=== PATIENT | female | born 2000 | race Caucasian/White ===

== ENCOUNTER 2022-02-05 09:30 | Emergency (ER) | payer OTHER, SELFPAY ==
[2022-02-05 09:49] VITALS: PULSE 82; O2SAT 99
[2022-02-05 09:50] VITALS: BP 115/57; PULSE 79; O2SAT 98
[2022-02-05 09:53] VITALS: BP 119/64; PULSE 78; RESP 18; TEMP 36.8; O2SAT 99; BMI 24.5
--- NOTE | 2022-02-05 10:04 | ED_ITS ---
HPI - General Adult General Chief complaint: Urogenital-Female Stated complaint: dizzy naseaus Time Seen by Provider: 02/05/22 09:53 Source: patient Mode of arrival: Ambulatory Limitations: no limitations History of Present Illness HPI narrative: 21-year-old at approximately 13 weeks EGA is here for evaluation of nausea and dizziness. No fevers. No vaginal bleeding. Is having some vaginal dischar ge. No urinary symptoms. No vomiting. Does have a history of anemia. Is on her vitamins. Also has on an iron supplement. Symptoms been going on for the past couple days. Contacted her primary OB provider who told her to come to the emergency department for evaluation. Related Data Home Medications Medication Instructions Recorded Confirmed prenat.vits,maninder,[id number] 1 tab PO DAILY 01/28/22 01/29/22 Previous Rx's Medication Instructions Recorded ondansetron 4 mg disintegrating 4 mg PO Q6H PRN #12 tab 02/05/22 tablet Allergies Allergy/AdvReac Type Severity Reaction Status Date / Time No Known Allergies Allergy Verified 01/29/22 12:10 Review of Systems Constitutional Constitutional: Reports system reviewed and no additional complaints, except as documented Cardiovascular Cardiovascular: Reports system reviewed and no additional complaints, except as documented Respiratory Respiratory: Reports system reviewed and no additional complaints, except as documented Gastrointestinal Gastrointestinal: Reports system reviewed and no additional complaints, except as documented Genitourinary Genitourinary: Reports system reviewed and no additional complaints, except as documented Integumentary/Breasts Skin/Breast: Reports system reviewed and no additional complaints, except as documented Neurologic Neurologic: Reports system reviewed and no additional complaints, except as documented Hematologic/Lymphatic On Anticoagulants: No Patient History Medical History Meniscus degeneration Migraine Shoulder injury Surgical History (Updated 01/28/22 @ 12:29 by Fifi Campbell RN) [place] teeth extracted Family History (Updated 01/28/22 @ 12:30 by Fifi Campbell RN) Mother Hypertension Father Diabetes mellitus Grandmother Uterine cancer Social History marital status: unmarried,living together number of children: 0 household members: significant other lives independently: Yes housing: apartment pets and animals: No education level: high school occupational status: employed current occupational exposures/hazards: No special deena needs: No travel history: recent ([place], [facility], [facility]) seatbelt use: always water heater temp set < 120 deg: Yes (Will check and adjust) working smoke detector in home: Yes fire extinguisher in home: Yes carbon monox detector in home: Yes firearms in home: No do you feel safe at home: Yes Smoking Status: Former smoker Tobacco: How many years used: 0 (less than one year) second hand exposure: No alcohol intake: former substance use type: marijuana (Previously) during the past year weight has: remained stable well-balanced diet: about half the time daily servings fruits/ve-1 caffeine: Yes Type(s) of exercise: walking, bicycling (exercise bike) and weight lifting Smoking Status: Former smoker Exam Initial Vital Signs Initial Vital Signs: Vital Signs Temperature 98.3 F 02/05/22 09:53 Pulse Rate 78 02/05/22 09:53 Respiratory Rate 18 02/05/22 09:53 Blood Pressure 119/64 02/05/22 09:53 Pulse Oximetry 99 02/05/22 09:53 HENMT Head: normal to inspection and normocephalic Resp Effort & Inspection: normal respiratory effort Auscultation: clear to auscultation bilaterally Cardio Rate: regular rate Rhythm: regular rhythm GI Inspection: normal to inspection Skin General: no rashes or lesions noted Neuro General: patient alert, patient awake, patient oriented x3 and moves all extre mities Extrem General: normal to inspection and capillary refill normal Psych Appearance: grossly normal and well kempt Course Orders Ordered: ED Orders 02/05/22 10:05 Urinalysis and Microscopic Stat 02/05/22 10:25 Basic Metabolic Panel Stat Complete Blood Count AUTO DIFF Stat HCG Quantitative /Beta subunit Stat Discontinued Medications Sodium Chloride (Normal Saline 0.9%) 1,000 mls @ 1,000 mls/hr IV BOLUS ONE Stop: 02/05/22 10:57 Last Infusion: 02/05/22 11:42 Dose: 1,000 mls/hr Documented by: Admin: 02/05/22 10:31 Dose: 1,000 mls/hr Documented by: KEN Ondansetron HCl (Ondansetron 4 Mg/2 Ml Inj) 4 mg IV NOW ONE Stop: 02/05/22 10:13 Last Admin: 02/05/22 10:31 Dose: 4 mg Documented by: KEN Vital Signs Vital signs: Vital Signs - 8 hr 02/05/22 09:53 Temperature 98.3 F Pulse Rate 78 Respiratory Rate 18 Blood Pressure 119/64 Pulse Oximetry 99 Medical Decision Making Lab Data Lab results reviewed: Yes I reviewed the patient's lab results. Result diagrams: 02/05/22 10:25 02/05/22 10:25 Labs: Lab Results 02/05/22 02/05/22 02/05/22 Range/Units 10:05 10:25 10:25 WBC 6.8 (4.5-11.0) X10^3/uL RBC 4.07 (4.0-5.2) X10^6/uL Hgb 11.8 L (12.0-16.0) g/dL Hct 34.0 L (36-46) % MCV 83.4 (80-100) fL MCH 28.9 (26-34) PG MCHC 34.7 (30-36) % RDW 12.6 (11.6-14.8) % Plt Count 166 (150-400) X10^3/uL Neut % (Auto) 76.9 H (50-75) % Lymph % (Auto) 16.5 L (25-40) % [place] % (Auto) 5.8 (3-14) % Eos % (Auto) 0.5 L (2-4) % Baso % (Auto) 0.3 (0-2) % Neut # (Auto) 5200 (6128-4054) /uL Lymph # (Auto) 1100 (4896-7648) /uL Jasper # (Auto) 400 (0-900) /uL Eos # (Auto) 0 (0-450) /uL Baso # (Auto) 0 (0-100) /uL Sodium 134 L (137-145) mmol/L Potassium 3.9 (3.4-5.1) mmol/L Chloride 106 (98-107) mmol/L Carbon Dioxide 23 (22-32) mmol/L BUN 10 (7-17) mg/dL Creatinine 0.68 (0.52-1.04) mg/dL Estimated GFR > 60 (>60) mL/min BUN/Creatinine Ratio 14.7 (6-22) Glucose 72 (70-100) mg/dL Calcium 9.1 (8.4-10.2) mg/dL HCG, Quant 97289 mIU/mL Urine Color Yellow Urine Appearance Clear Urine pH 5.5 (4.5-8.0) Ur Specific [place] 1.020 (1.000-1.035) Urine Protein Negative (Negative) Urine Glucose (UA) Negative (Negative) g/dL Urine Ketones Negative (NEGATIVE) Urine Occult Blood Negative (Negative) Urine Nitrate Negative (Negative) Urine Bilirubin Negative (NEGATIVE) Urine Urobilinogen 0.2 (0.2) E.U./dL Ur Leukocyte Esterase Trace H (NEGATIVE) Urine RBC None seen (0-5/HPF) Urine WBC 1-5/hpf (0-5/HPF) Ur Squamous Epith Cells 1-5 /hpf (0-5/HPF) Urine Bacteria Many (>30) H (None) Ur Culture Indicated? Culture not indicate MDM Narrative Medical decision making narrative: Labs are unremarkable. No signs of urinary tract infection. She is not having any vaginal bleeding. She has no nausea medication at home. She does feel somewhat better after fluids. Was sent home with Corey. Will have her keep all of her scheduled OB appointments. She was given return precautions. She expressed understanding and agreement. Discharge Plan Departure Patient Disposition: Home Clinical Impression: , Nausea Instructions: Nausea of (Alternative Therapy) Activity Restrictions/Additional Instructions: Be sure to increase your fluid intake. Keep all of your scheduled OB appointments. Continue to take your vitamins. Return to the emergency department for any new symptoms. Prescriptions: New ondansetron 4 mg tablet,disintegrating 4 mg PO Q6H PRN (Reason: nausea and vomiting) Qty: 12 0RF No Action prenat.vits,maninder,[id number] Tablet 1 tab PO DAILY 0RF Referrals: Miscellaneous,Doctor, MD [Primary Care Provider] -
[2022-02-05 10:18] LABS: Appearance Urine UA CLEAR; Bilirubin Urine UA NEGATIVE (NEGATIVE); Color Urine UA YELLOW; Glucose Urine UA NEGATIVE (Negative); Ketones Urine UA NEGATIVE (NEGATIVE); Leukocyte Esterase Urine UA TRACE (NEGATIVE); Nitrite Urine UA NEGATIVE (Negative); Occult Blood Urine UA NEGATIVE (Negative); Protein Urine UA NEGATIVE (Negative); Urobilinogen Urine UA 0.2 E.U./dL (0.2)
[2022-02-05 10:19] LABS: pH Urine UA 5.5 (4.5-8.0)
[2022-02-05] MEDS: ONDANSETRON 4 MG/2 ML INJ IV (10:31)
[2022-02-05] MEDS: SODIUM CHLORIDE 0.9% 1,000 ML 1000 ML IV (10:31)
[2022-02-05 10:33] LABS: Bacteria Urine Many (>30); RBC Urine None Seen (0-5/HPF); Squamous Epithelial Cell Urine 1-5 /HPF (0-5/HPF); WBC Urine 1-5/HPF (0-5/HPF)
[2022-02-05 10:37] LABS: Add Manual Diff / Slide Review NO; Basophils Absolute Auto 0 /uL (0-100); Basophils Percent Auto 0.3 % (0-2); Eosinophils Absolute Auto 0 /uL (0-450); Eosinophils Percent Auto 0.5 % (2-4); Hemoglobin 11.8 g/dL (12.0-16.0); Lymphocytes Absolute Auto 1100 /uL (1100-4500); Lymphocytes Percent Auto 16.5 % (25-40); Mean Corpuscular HGB Conc 34.7 % (30-36); Mean Corpuscular Hemoglobin 28.9 PG (26-34); Mean Corpuscular Volume 83.4 fL (80-100); Monocytes Absolute Auto 400 /uL (0-900); Monocytes Percent Auto 5.8 % (3-14); Neutrophils Absolute Auto 5200 /uL (1500-7000); Neutrophils Percent Auto 76.9 % (50-75); Platelet Count 166 X10^3/uL (150-400); Red Blood Cell Count 4.07 X10^6/uL (4.0-5.2); Red Cell Distribution Width 12.6 % (11.6-14.8); White Blood Cell Count 6.8 X10^3/uL (4.5-11.0)
[2022-02-05 10:51] LABS: BUN Creatinine Ratio 14.7 (6-22); Blood Urea Nitrogen 10 mg/dL (7-17); Calcium 9.1 mg/dL (8.4-10.2); Carbon Dioxide 23 mmol/L (22-32); Chloride 106 mmol/L (98-107); Estimated Glomerular Filt Rate > 60 mL/min (>60); Glucose 72 mg/dL (70-100); HEMOLYSIS < 15 (0-50); Potassium 3.9 mmol/L (3.4-5.1); Sodium 134 mmol/L (137-145)
[2022-02-05 11:34] LABS: HCG Quantitative /Beta subunit 41471 mIU/mL
[2022-02-05 12:08] VITALS: BP 115/55; PULSE 69; RESP 18; TEMP 36.6; O2SAT 99
== END 2022-02-05 12:08 | disposition home or self-care (01) ==
PROVIDERS: Emergency Provider Emergency Medicine; Referring Provider Family Medicine
DX: O21.0 Mild hyperemesis gravidarum (principal); Z3A.13 13 weeks gestation of pregnancy
CPT/HCPCS: 36415; 80048; 81001; 84702; 85025; 96361; 96374; 99284; J2405

== ENCOUNTER → 2022-03-17 12:13 | Outpatient (CLI) | payer OTHER, SELFPAY ==
--- NOTE | 2022-03-17 12:15 | DI.US.S_ITS ---
PROCEDURE: US OB >= 14 WEEKS FETUS INDICATIONS: Anatomy Screening OUTSIDE/PRIOR DATING DATA: Last menstrual period (LMP): 10/24/2021. LMP-based estimated date of delivery (MINDY): 07/31/2022. First dating scan (date and location): 03/17/2022. Estimated date of delivery (MINDY) from first dating scan: 08/01/2022. TECHNIQUE: Real-time scanning was performed of the fetus, with image documentation and biometric measurements. Endovaginal scanning: No COMPARISON: None. FINDINGS: General: A single living intrauterine gestation is present. Presentation: Vertex. Placenta: Placental position is anterior , without previa. Amniotic fluid index: 13.2 cm, normal range is 5-24 cm. heart rate: 141 beats per minute. Maternal cervical canal: 4.2 cm long. Normal lower limit is 2.5 cm. biometrics: Biparietal diameter: 48 mm; 20 weeks 3 days Head circumference: 178 mm; 20 weeks 2 days Abdominal circumference: 145 mm; 19 weeks 6 days Femur length: 35 mm; 21 weeks 0 days Clinically estimated gestational age: 20 weeks 4 days Composite gestational age from present scan: 20 weeks 3 days Anatomic survey: Neuro: Ventricles are non-dilated at less than 10 mm. Cisterna magna is normal at 3-11 mm. Cerebellum is normal in size and morphology. Nuchal skin fold: Normal at less than 6 mm between 14-21 weeks gestational age. Face: Nose and lips, facial profile are normal. Spine: No evidence for spina bifida. Heart: 4-chambered heart is present, with normal ventricular outflow tracts. Diaphragm: Diaphragm is intact. Stomach: Left-sided stomach is present. Kidneys: No hydronephrosis. Normal is less than 5 mm in 2nd trimester, less than 7 mm in 3rd trimester. Cord: 3-vessel cord has orthotopic insertion. Bladder: Normal in size. Extremities: All 4 extremities identified. IMPRESSION: 1. Single living intrauterine gestation. 2. Normal survey of anatomy. We strive to produce accurate, complete, and clear reports of imaging services. To assist us in improving patient care, this report was composed using standard report templates and voice recognition software. Therefore, it may contain abnormal punctuation, insertions and/or omissions. Occasional wrong-word or sound-alike substitutions may occur. Though we review the report and make efforts to correct it, we do recommend that the report be read carefully in proper context to recognize any text inaccuracies. Dictated by: Jesus Manuel Cox M.D. on 03/17/2022 at 15:07 Transcribed by: JACEY on 03/17/2022 at 15:09 Approved by: Jesus Manuel Cox M.D. on 03/17/2022 at 16:55
== END ==
PROVIDERS: Referring Provider Family Medicine; Visit Provider Family Medicine
DX: Z36.89 Encounter for other specified antenatal screening (principal); Z3A.20 20 weeks gestation of pregnancy
CPT/HCPCS: 76811

== ENCOUNTER → 2022-04-02 13:34 | Outpatient (CLI) | payer OTHER, SELFPAY | PROVIDERS: Referring Provider Family Medicine; Visit Provider Family Medicine | DX: Z34.01 Encounter for supervision of normal first pregnancy, first trimester (principal) | CPT/HCPCS: 36415; 86850; 86900; 86901 ==

== ENCOUNTER 2022-05-17 10:33 | Outpatient (CLI) | payer OTHER, SELFPAY ==
[2022-05-17 12:24] LABS: Appearance Urine UA CLEAR; Bilirubin Urine UA NEGATIVE (NEGATIVE); Color Urine UA YELLOW; Glucose Urine UA NEGATIVE (Negative); Ketones Urine UA NEGATIVE (NEGATIVE); Leukocyte Esterase Urine UA NEGATIVE (NEGATIVE); Nitrite Urine UA NEGATIVE (Negative); Occult Blood Urine UA 2+ (Negative); Protein Urine UA NEGATIVE (Negative); Specific Gravity Urine UA <=1.005 (1.000-1.035); Urobilinogen Urine UA 0.2 E.U./dL (0.2)
[2022-05-17 12:32] LABS: COVID19 -Nasal RAPID Negative (Negative)
[2022-05-17 12:43] LABS: pH Urine UA 6.5 (4.5-8.0)
[2022-05-17 12:49] LABS: Amorphous Sediment Urine 1+; Bacteria Urine None Seen; Culture Indicated Urine Cult Not Indicated; RBC Urine 1-5/HPF (0-5/HPF); WBC Urine None Seen (0-5/HPF)
--- NOTE | 2022-05-17 13:04 | P.TNLD_ITS ---
Visit Information Visit Information Date of evaluation: 05/17/22 Primary OB Provider: Linda Braswell Reason for Evaluation: Yes other Comments/Additional reasons for admission: 22yo at 29w2d here due to dizziness. Pt reports feeling dizzy this morning. States it is more lightheaded/feeling like she might pass out than vertigo. No vaginal bleeding, LOF, contractions. She is feeling her baby move regularly. She did not stay well hydrated over the weekend, and has not been urinating all that often. No recent chest pain, SOB, palpitations. [facility] Medical History (Updated 05/18/22 @ 13:13 by Linda Braswell MD) Anxiety (~2020) Depression (~2020) Eczema (~2019) Meniscus degeneration Migraine Painful menstrual periods (~2014) Shoulder injury Shoulder pain (~2019) Surgical History (Updated 01/28/22 @ 12:29 by Fifi Campbell RN) [place] teeth extracted Family History (Updated 03/17/22 @ 19:29 by Juliana Pulido) Mother Hypertension Father Diabetes mellitus Grandmother Uterine cancer Diabetes mellitus Social History marital status: unmarried,living together number of children: 0 household members: significant other lives independently: Yes housing: apartment pets and animals: No education level: high school occupational status: employed current occupational exposures/hazards: No special deena needs: No travel history: recent ([facility], [facility], [facility]) seatbelt use: always water heater temp set < 120 deg: Yes (Will check and adjust) working smoke detector in home: Yes fire extinguisher in home: Yes carbon monox detector in home: Yes firearms in home: No do you feel safe at home: Yes Smoking Status: Former smoker Tobacco: How many years used: 0 (less than one year) second hand exposure: No alcohol intake: former substance use type: marijuana (Previously) during the past year weight has: remained stable well-balanced diet: about half the time daily servings fruits/ve-1 caffeine: Yes Type(s) of exercise: walking, bicycling (exercise bike) and weight lifting Objective Labs Labs: Laboratory Results - last 24 hr 05/17/22 05/17/22 11:40 12:21 Urine Color Yellow Urine Appearance Clear Urine pH 6.5 Ur Specific [place] <=1.005 Urine Protein Negative Urine Glucose (UA) Negative Urine Ketones Negative Urine Occult Blood 2+ H Urine Nitrate Negative Urine Bilirubin Negative Urine Urobilinogen 0.2 Ur Leukocyte Esterase Negative Urine RBC 1-5/hpf Urine WBC None seen Amorphous Sediment 1+ Urine Bacteria None seen Ur Culture Indicated? Cult not indicated SARS-CoV-2 (PCR) Negative Evaluation Evaluation Baseline heart rate: 130 Variability: Moderate (11-25) monitor accelerations: Present Monitor Decelerations: Absent Diagnosis, Plan/Disposition Final Diagnosis (1) Light-headedness: Status: Acute (2) 29 weeks gestation of : Status: Acute Plan/Disposition Plan: 22yo at 29w2d here due to dizziness, most consistent with mild dehydration due to decreased PO intake over the weekend. Encouraged to increase water intake significantly, discussed normal urination frequency. F/U for regularly scheduled OB appt. OB Disposition: home
== END 2022-05-17 13:20 | disposition home or self-care (01) ==
LOC: LABOR 12:42 → OB 05-21 08:28
PROVIDERS: Referring Provider Family Medicine; Visit Provider Family Medicine
DX: O26.893 Other specified pregnancy related conditions, third trimester (principal); R42 Dizziness and giddiness; Z3A.29 29 weeks gestation of pregnancy; Z20.822 Contact with and (suspected) exposure to COVID-19
CPT/HCPCS: 59025; 59050; 81001; 87635; C9803; G0378; G0379

== ENCOUNTER → 2022-06-04 07:23 | Outpatient (CLI) | payer OTHER, SELFPAY ==
[2022-06-04 09:54] LABS: Appearance Urine UA CLEAR; Bilirubin Urine UA NEGATIVE (NEGATIVE); Color Urine UA YELLOW; Glucose Urine UA NEGATIVE (Negative); Ketones Urine UA NEGATIVE (NEGATIVE); Leukocyte Esterase Urine UA NEGATIVE (NEGATIVE); Nitrite Urine UA NEGATIVE (Negative); Occult Blood Urine UA NEGATIVE (Negative); Protein Urine UA NEGATIVE (Negative); Urobilinogen Urine UA 0.2 E.U./dL (0.2)
[2022-06-04 09:55] LABS: Hematocrit 32.2 % (36-46)
[2022-06-04 10:41] LABS: GTT (PREG) 1 Hour PP 50gm Dose 107 mg/dL (76-139)
== END ==
PROVIDERS: Referring Provider Family Medicine; Visit Provider Family Medicine
DX: Z34.01 Encounter for supervision of normal first pregnancy, first trimester (principal); Z3A.29 29 weeks gestation of pregnancy
CPT/HCPCS: 36415; 81003; 82950; 85014; 85018; 87086

== ENCOUNTER → 2022-07-02 17:02 | Outpatient (CLI) | payer OTHER, SELFPAY ==
[2022-07-03 13:06] LABS: Strep Grp B PCR POS for Grp B Strep
== END ==
PROVIDERS: Visit Provider Family Medicine
DX: Z36.85 Encounter for antenatal screening for Streptococcus B (principal)
CPT/HCPCS: 87653

== ENCOUNTER 2022-07-13 18:53 | Outpatient (CLI) | payer OTHER, SELFPAY ==
[2022-07-13 20:05] VITALS: BP 115/66
== END 2022-07-13 20:08 | disposition home or self-care (01) ==
LOC: OB 07-14 10:50
PROVIDERS: Referring Provider Family Medicine; Visit Provider Family Medicine
DX: O47.1 False labor at or after 37 completed weeks of gestation (principal); Z3A.37 37 weeks gestation of pregnancy
CPT/HCPCS: 59025; G0378; G0379

== ENCOUNTER 2022-07-22 06:08 | Observation (INO) | payer OTHER, SELFPAY ==
--- NOTE | 2022-07-22 07:04 | DI.US.S_ITS ---
PROCEDURE: US OB LIMITED INDICATIONS: ABDOMINAL PAIN - RULE OUT ABRUPTION OUTSIDE/PRIOR DATING DATA: Last menstrual period (LMP): 10/24/2021. LMP-based estimated date of delivery (MINDY): 07/31/2022. First dating scan (date and location): 03/17/2022 at . Estimated date of delivery (MINDY) from first dating scan: 08/01/2022. The calculations are made using the working MINDY of 08/01/2022. TECHNIQUE: Real-time scanning was performed of the fetus, with image documentation and biometric measurements. Biophysical profile was also obtained. Endovaginal scanning: Not performed. COMPARISON: [facility], , US ABDOMEN COMPLETE, 07/22/2022, 7:38. [facility], , US OB >= 14 WEEKS FETUS, 03/17/2022, 13:29. FINDINGS: General: A single living intrauterine gestation is present. Presentation: Vertex. Placenta: Placental position is anterior , without previa. Amniotic fluid index: 14.0 cm, normal range is 5-24 cm. Single deepest vertical pocket is 4.7 cm. heart rate: 145 beats per minute. Maternal cervical canal: Not visualized. biometrics: Biparietal diameter: 35 weeks 6 days Head circumference: 36 weeks 4 days Abdominal circumference: 35 weeks 2 days Femur length: 38 weeks 2 days Clinically estimated gestational age: 38 weeks 4 days Composite gestational age from present scan: 36 weeks 4 days Estimated weight and percentile: 2897 g; 14% Measurement variability for biometric dating: +/- 7 days from 14 weeks to 15 weeks 6 days gestation, +/- 10 days from 16 weeks to 21 weeks 6 days gestation, +/- 2 weeks from 22 weeks to 27 weeks 6 days gestation, +/- 3 weeks for 28 weeks gestation or later. weight reference: 4500 g or EFW >90/95% is considered macrosomia or large for gestational age. EFW <10% is small for gestational age. EFW 5% or less is considered intra-uterine growth restriction.>> Umbilical artery Doppler: S/D = 2.2-2.5 IMPRESSION: 1. A single living intrauterine gestation with an estimated gestational age of 36 weeks 4 days. 2. growth is at the lower range of normal. weight 14%. Head circumference 4% and abdominal circumference 3%. 3. Normal umbilical Doppler ultrasound with preserved diastolic flow. We strive to produce accurate, complete, and clear reports of imaging services. To assist us in improving patient care, this report was composed using standard report templates and voice recognition software. Therefore, it may contain abnormal punctuation, insertions and/or omissions. Occasional wrong-word or sound-alike substitutions may occur. Though we review the report and make efforts to correct it, we do recommend that the report be read carefully in proper context to recognize any text inaccuracies. Dictated by: Darron Etienne M.D. on 07/22/2022 at 8:48 Approved by: Darron Etienne M.D. on 07/22/2022 at 8:56
--- NOTE | 2022-07-22 07:06 | DI.US.S_ITS ---
PROCEDURE: US ABDOMEN COMPLETE INDICATIONS: RIGHT ABDOMINAL PAIN TECHNIQUE: Real-time scanning was performed of the abdominal and retroperitoneal organs, with image documentation. COMPARISON: [facility], US, US OB >= 14 WEEKS FETUS, 03/17/2022, 13:29. [facility], US, US OB LIMITED, 07/22/2022, 7:22. FINDINGS: Liver: Liver is normal in size and homogeneous in echotexture. Gallbladder: No gallstones. No gallbladder wall thickening, pericholecystic fluid or sonographic Lynch's sign. Biliary ducts: Intrahepatic bile ducts are non-dilated. Extrahepatic bile duct caliber measures 3.4 mm. Normal is 6-7 mm or less in diameter, or 10 mm or less post-cholecystectomy. Pancreas: Visualized portions of the pancreas are sonographically normal. Spleen: Spleen is normal in size and homogeneous in echotexture. Kidneys: Kidneys are normal in size and echotexture. Right kidney measures 13.8 cm long; left kidney measures 11.4 cm long. Wnsznclj-[id number]-[id number] right hydronephrosis and mild left hydronephrosis. The proximal right ureter is also dilated. No solid masses. Aorta: Visualized aorta is normal in caliber at less than 3 cm. Iliacs: Proximal common iliac arteries are not visualized. IVC: Intrahepatic inferior vena cava is patent. Miscellaneous: No free abdominal fluid. IMPRESSION: 1. Vbbyxwjl-[id number] right hydronephrosis and mild left hydronephrosis. The proximal right ureter is also dilated. No renal stones are visualized. The findings may be related to late . 2. Dictated by: Darron Etienne M.D. on 07/22/2022 at 8:57 Approved by: Darron Etienne M.D. on 07/22/2022 at 9:01
[2022-07-22 07:08] LABS: Appearance Urine UA SL CLOUDY; Bilirubin Urine UA NEGATIVE (NEGATIVE); Color Urine UA YELLOW; Glucose Urine UA TRACE g/dL (Negative); Ketones Urine UA NEGATIVE (NEGATIVE); Leukocyte Esterase Urine UA 3+ (NEGATIVE); Nitrite Urine UA NEGATIVE (Negative); Occult Blood Urine UA 3+ (Negative); Protein Urine UA NEGATIVE (Negative); Specific Gravity Urine UA 1.015 (1.000-1.035); Urobilinogen Urine UA 0.2 E.U./dL (0.2)
[2022-07-22 07:18] LABS: WBC Urine 10-30/HPF (0-5/HPF)
[2022-07-22 07:19] LABS: RBC Urine 5-10/HPF (0-5/HPF); Squamous Epithelial Cell Urine 10-30 /HPF (0-5/HPF)
[2022-07-22 07:22] LABS: Bacteria Urine Many (>30); Culture Indicated Urine Specimen Cultured
== END 2022-07-22 08:40 | disposition home or self-care (01) ==
PROVIDERS: Admitting Provider Family Medicine; Referring Provider Family Medicine; Visit Provider Family Medicine
DX: O47.1 False labor at or after 37 completed weeks of gestation (principal); O26.893 Other specified pregnancy related conditions, third trimester; R10.9 Unspecified abdominal pain; Z3A.38 38 weeks gestation of pregnancy
CPT/HCPCS: 59025; 76700; 76815; 76820; 81001; 87086; G0378; G0379

== ENCOUNTER 2022-08-01 18:13 | Inpatient (IN) | payer OTHER, SELFPAY ==
[2022-08-01 18:59] VITALS: BP 117/71
[2022-08-01] MEDS: miSOPROStoL 100 MCG TABLET 25 MCG VAG (19:49)
[2022-08-01 20:12] LABS: COVID19 -Nasal RAPID Negative (Negative)
[2022-08-01 20:21] LABS: Add Manual Diff / Slide Review NO; Basophils Absolute Auto 0 /uL (0-100); Basophils Percent Auto 0.4 % (0-2); Eosinophils Absolute Auto 100 /uL (0-450); Eosinophils Percent Auto 0.7 % (2-4); Hematocrit 33.8 % (36-46); Hemoglobin 11.2 g/dL (12.0-16.0); Lymphocytes Absolute Auto 1300 /uL (1100-4500); Lymphocytes Percent Auto 13.8 % (25-40); Mean Corpuscular HGB Conc 33.3 % (30-36); Mean Corpuscular Hemoglobin 26.5 PG (26-34); Mean Corpuscular Volume 79.8 fL (80-100); Monocytes Absolute Auto 700 /uL (0-900); Monocytes Percent Auto 7.2 % (3-14); Neutrophils Absolute Auto 7300 /uL (1500-7000); Neutrophils Percent Auto 77.9 % (50-75); Platelet Count 255 X10^3/uL (150-400); Red Blood Cell Count 4.24 X10^6/uL (4.0-5.2); Red Cell Distribution Width 14.5 % (11.6-14.8); White Blood Cell Count 9.4 X10^3/uL (4.5-11.0)
[2022-08-02] MEDS: LACTATED RINGERS 1,000 ML 100 ML IV ×4 (05:49→21:12)
[2022-08-02] MEDS: fentaNYL 100 MCG/2 ML INJ 50 MCG IV ×2 (06:21→08:32)
--- NOTE | 2022-08-02 09:53 | PM.OBHP.IH.1 ---
OB HPI Date/Time Date of admission: 08/01/22 Date Patient Seen: 08/02/22 History of Present Condition Chief complaint: Observation MINDY Calculator Estimated Delivery Date Method Current WG Current Estimate 07/31/22 Manual 40w 2d Final MINDY - LATRICIA Other Estimates 07/31/22 LMP (Certain) 40w 2d 07/31/22 Ultrasound #1 40w 2d Estimated Gestational Age (weeks): 40w2d : 1 Para: 0 Narrative: Pt is a 22yo at 40w2d here for elective IOL. The pt denies any vaginal bleeding, LOF, contractions prior to presentation. She is feeling her baby move regularly. Her was complicated by hyperemesis in the first trimester with IV infusions, which improved later in . This morning, the pt reports feeling painful contractions every 2-3 minutes. care: good care, initiated at week # (13) and pounds weight gain (46) Dating criteria OB: LMP confirmed by 1st trimester US Ultrasounds: normal 1st trimester US and normal mid trimester US Obstetrical complications: hyperemesis Medical complications OB: none Indications Indication for induction OB: other (elective) Preadmission Labs Last OB Lab Results: Blood Type O Positive 08/01/22 19:30 Antibody Screen Negative 08/01/22 19:30 Hematocrit 33.8 % (36-46) L 08/01/22 19:30 Hemoglobin 11.2 g/dL (12.0-16.0) L 08/01/22 19:30 Hepatitis B Surface Antigen Negative s/c (NEGATIVE) 03/17/22 15:28 Hepatitis C Antibody Negative s/c (NEGATIVE) 03/17/22 15:28 Rubella Antibody 14.3 IU/mL (>15) L 03/17/22 15:28 Varicella-Zoster IgG Antibody 3391 index (Immune >165) 03/17/22 15:28 Glucose 1 Hour 107 mg/dL (76-139) 06/04/22 09:13 Group B Streptococcus (PCR) Pos for grp b strep H 07/02/22 17:02 -: Urine: negative Genetic Screens: Quad screen: Normal External Labs -: Urine: negative Evaluation Evaluation Baseline heart rate: 130 Variability: Moderate (11-25) monitor accelerations: Present Monitor Decelerations: Absent Contraction Frequency (minutes): 3 Uterine Contraction Intensity: Mild Status: Category l Dilation (cm): 1 Effacement (%): 25 Dilation: 1-2 cm Effacement: 40-50% station: -3 Position of cervix: anterior Consistency: soft Hinds score: 6 PFSH Medical History (Updated 07/09/22 @ 12:47 by Linda Braswell MD) Anxiety (~2020) Depression (~2020) Eczema (~2019) Meniscus degeneration Migraine Painful menstrual periods (~2014) Shoulder injury Surgical History (Updated 01/28/22 @ 12:29 by Fifi Campbell RN) [place] teeth extracted Family History (Updated 03/17/22 @ 19:29 by Juliana Pulido) Mother Hypertension Father Diabetes mellitus Grandmother Uterine cancer Diabetes mellitus Social History marital status: unmarried,living together number of children: 0 household members: significant other lives independently: Yes housing: apartment pets and animals: No education level: high school occupational status: employed current occupational exposures/hazards: No special deena needs: No travel history: recent ([place], [facility], [facility]) seatbelt use: always water heater temp set < 120 deg: Yes (Will check and adjust) working smoke detector in home: Yes fire extinguisher in home: Yes carbon monox detector in home: Yes firearms in home: No do you feel safe at home: Yes Smoking Status: Never smoker Tobacco: How many years used: 0 (less than one year) second hand exposure: No alcohol intake: former substance use type: marijuana (Previously) during the past year weight has: remained stable well-balanced diet: about half the time daily servings fruits/ve-1 caffeine: Yes Type(s) of exercise: walking, bicycling (exercise bike) and weight lifting Meds Home Medications and Allergies Home Medications Medication Instructions Recorded Confirmed Type prenat.vits,maninder,nzp-jbqb-fjjeo 1 tab PO DAILY 01/28/22 07/28/22 History promethazine 25 mg tablet 25 mg PO Q6H PRN nausea and 02/23/22 07/28/22 Rx vomiting #30 tabs ondansetron 4 mg disintegrating 4 mg PO Q6H PRN nausea and 03/17/22 07/28/22 Rx tablet vomiting #30 tabs double electric breast pump and #1 ea 07/23/22 07/28/22 Rx supplies Allergies Allergy/AdvReac Type Severity Reaction Status Date / Time No Known Allergies Allergy Verified 07/28/22 16:21 OB Exam Narrative Exam Narrative: Gen: NAD, sitting comfortably in bed, appears well CV: RRR, no murmurs Resp: clear to auscultation bilaterally Abd: soft, nontender, gravid Ext: no edema Objective Labs Result Diagrams: 08/01/22 19:30 Labs: Laboratory Results - last 24 hr 08/01/22 08/01/22 08/01/22 18:32 19:30 19:30 WBC 9.4 RBC 4.24 Hgb 11.2 L Hct 33.8 L MCV 79.8 L MCH 26.5 MCHC 33.3 RDW 14.5 Plt Count 255 Neut % (Auto) 77.9 H Lymph % (Auto) 13.8 L [place] % (Auto) 7.2 Eos % (Auto) 0.7 L Baso % (Auto) 0.4 Neut # (Auto) 7300 H Lymph # (Auto) 1300 [place] # (Auto) 700 Eos # (Auto) 100 Baso # (Auto) 0 SARS-CoV-2 (PCR) Negative Blood Type O Positive Antibody Screen Negative Assessment and Plan Assessment and Plan Assessment and Plan narrative: 22yo at 40w2d here for elective IOL. complicated by hyperemesis in the 1st trimester. GBS positive, Rh positive. She received one dose of cytotec overnight, now with painful contractions. No significant cervical change. Hinds score 6. After informed consent, olivier catheter placed through the cervical os and inflated with 60cc of NS. - Expectant management, anticipate - FHT reassuring, okay for intermittent monitoring - Nitrous for pain control, okay for epidural when desired - GBS positive, start prophylaxis due to painful contractions - Olivier in place with gentle traction. Will remove after 12hrs if does not fall out prior to that time.
[2022-08-02] MEDS: PENICILLIN G POTASSIUM 5,000,000 UNIT in DEXTROSE 5% IN WATER 250 ML 250 UNIT IV (10:41)
--- NOTE | 2022-08-02 13:02 | PM.OBPNLAB ---
Date/Time Date Patient Seen: 08/02/22 Time Patient Seen: 13:02 Pain Control Pain control: other (Nitrous oxide) Pelvic Exam Dilation (cm): 3 Effacement (%): 50 station: -4 Amniotic membrane status: Intact Contractions Monitor mode: External Contraction frequency (min): 5 Contraction pattern: Regular Contraction intensity: Strong/Firm Status status: Category l Heart Rate Baseline: 120 Monitor Accelerations: Present Monitor Decelerations: Absent Monitor Variability: Moderate Assessment and Plan Comments: 22yo at 40w2d here for elective IOL.? complicated by hyperemesis in the 1st trimester.? GBS positive, Rh positive.? She received one dose of cytotec overnight, then olivier catheter. Olivier now removed as was sitting in the vaginal. Baby remains very high, not ballotable. Confirmed vertex with bedside ultrasound. Will start pitocin now. - Expectant management, anticipate - Start pitocin, titrate as tolerated - Nitrous for pain control, okay for epidural when desired - GBS positive, continue penicillin prophylaxis - FHT reassuring
[2022-08-02] MEDS: PENICILLIN G POTASSIUM 3,000,000 UNIT/50 ML FROZ.PIGGY 100 UNIT IV ×2 (15:21→19:59)
[2022-08-02] MEDS: OXYTOCIN PREMIX 30 UNIT/500 ML PLAST..BAG IV (16:05)
--- NOTE | 2022-08-02 17:17 | P.PNOB_ITS ---
Date/Time Date Patient Seen: 08/02/22 Time Patient Seen: 17:17 Pain Control Pain control: epidural Pelvic Exam Dilation (cm): 4 Effacement (%): 70 station: -1 Amniotic membrane status: Ruptured Contractions Monitor mode: External Contraction frequency (min): 6 Contraction pattern: Regular Contraction intensity: Strong/Firm Status status: Category l Heart Rate Baseline: 120 Monitor Accelerations: Present Monitor Decelerations: Absent Monitor Variability: Moderate Assessment and Plan Comments: 22yo at 40w2d here for elective IOL.? complicated by hyperemesis in the 1st trimester.? GBS positive, Rh positive.? She received one dose of cytotec overnight, then olivier catheter.? Olivier fell out, now on pitocin. Pitocin was held briefly due to pts intolerance as epidural wasn't functioning. Epidural now functional again, pitocin to be restarted. Cervix without significant change, is located far to pts right side. SROM with meconium- stained amniotic fluid present. - Expectant management, anticipate - Continue pitocin, titrate as tolerated - Epidural in place for pain control - GBS positive, continue penicillin prophylaxis - FHT reassuring - Frequent position changes to help with likely asynclitic presentation with current cervical positioning
[2022-08-02] MEDS: CALCIUM CARBONATE 500 MG TAB 1000 MG PO (21:17)
[2022-08-02] MEDS: FENT 2MCG/ML BUPIV 0.125% EPI 200 MCG/100 ML PLAST..BAG 6 MCG EPIDURAL (21:20)
--- NOTE | 2022-08-02 23:30 | PM.OBPRVD ---
Labor & Delivery Delivery date: 08/02/22 Intrapartal Events: None Cervical ripening method: per misoprostal protocol Induction method: per pitocin protocol Delivery monitor: external FHT and external uterine Route of delivery: Episiotomy description: None L&D Laceration Description: Perineal - 1st Degree and Labial Delivery repair: chromic Quantitative Blood Loss: 150 Anesthesia Type: Epidural Complications: None Narrative: PROCEDURE: at 40w2d presented for elective IOL and was admitted to Labor and Delivery. She received cytotec for induction, followed by olivier catheter. The olivier fell out, and then pitocin was initiated. She had adequate GBS prophylaxis with penicillin. The pt had SROM with meconium-stained amniotic fluid. Pain was controlled with an epidural. Her pitocin was turned off due to late decels, and the pt continued to progress to complete dilation. The patient progressed through the 1st stage over 9 hours. The patient progressed through the 2nd stage over 1 hours and delivered a viable female infant with APGARs 9/9 at 23:10 via without complications. The cord was cut and clamped after it stopped pulsating. The perineum and vagina were inspected with small 1st degree perineal and left labial laceration repaired with 3-O Chromic. PREPROCEDURE DIAGNOSIS: Intrauterine at 40w2d GBS positive RH positive POSTPROCEDURE DIAGNOSIS: Intrauterine at 40w2d, delivered Same as preprocedure Baby 1: Infant gender: Female Presentation: vertex Position: Left Occiput Anterior Placenta delivery description: Spontaneous Cord Vessel Description: 3 Vessels and Nuchal Cord (reduced after delivery) score (1 min): 9 score (5 min): 9 weight: 6 lb 7.952 oz Plan for aftercare: Routine care
[2022-08-03] MEDS: IBUPROFEN 600 MG TABLET PO ×2 (02:43→19:34)
[2022-08-03] MEDS: ACETAMINOPHEN 325 MG TABLET 650 MG PO ×4 (02:44→22:09)
[2022-08-03] MEDS: PRENATAL VIT,CALC/IRON/FOLIC 1 TABLET 1 TAB PO (08:58)
[2022-08-03 08:59] VITALS: TEMP 36.7
[2022-08-03] MEDS: DOCUSATE 100 MG CAPSULE PO (08:59)
[2022-08-03] MEDS: LANOLIN OINT 7 GM 1 APPLIC TOP (13:11)
[2022-08-03] MEDS: DERMOPLAST SPRAY 20% 60 ML 1 SPRAY TOP (13:11)
--- NOTE | 2022-08-03 14:35 | PM.OBPN.1 ---
Subjective - OB Subjective Patient comments: no complaints and pain well controlled baby status: doing well and nursing well feeding status: exclusively breast feeding Narrative: Patient reports that she is doing well. Her lochia is decreasing appropriately. She has voided successfully. Exam Vital Signs (past 8 hours): - 08/03/22 08:59 Temperature 98.0 F Narrative Exam Narrative: Gen: NAD, sitting comfortably in bed, appears well CV: RRR, no murmurs Resp: clear to auscultation bilaterally Abd: soft, appropriately tender, fundus firm and below the umbilicus, nondistended Ext: no edema Objective Labs Result Diagrams: 08/01/22 19:30 Assessment & Plan Plan Comments: Pt is a 22yo PPD#1 s/p without complications. Pt doing well. - Normal care - support Time Spent With Patient Time: Total time spent is greater than 50% in coordination of care (as documented) at patient's floor/unit and/or counseling patient: Time with patient: less than 15 minutes
[2022-08-03 15:19] VITALS: TEMP 36.7
[2022-08-04] MEDS: IBUPROFEN 600 MG TABLET PO ×2 (02:26→08:34)
[2022-08-04] MEDS: DOCUSATE 100 MG CAPSULE PO (08:34)
[2022-08-04] MEDS: LANOLIN OINT 7 GM 1 APPLIC TOP (08:34)
[2022-08-04] MEDS: PRENATAL VIT,CALC/IRON/FOLIC 1 TABLET 1 TAB PO (08:35)
[2022-08-04] MEDS: ACETAMINOPHEN 325 MG TABLET 650 MG PO (08:35)
--- NOTE | 2022-08-04 08:43 | PM.OBDS.1 ---
Discharge Providers Provider Date of admission: 08/01/22 18:13 Discharge Date: 08/04/22 Primary care physician: Libia MCCALLUM Provider Consults: 08/03/22 23:29 Consult to Senior Sourcing Manager Routine Comment: Discharge provider: Linda Braswell MD Summary Hospital Course Date Patient Seen: 08/04/22 Diagnoses: Intrauterine at 40w2d GBS positive RH positive Spontaneous vaginal delivery Hospital Course: The pt presented for elective IOL. She received cytotec and then olivier catheter. The olivier fell out, and pitocin was initiated. Pitocin was stopped due to nonreassuing FHT. The pt progressed to complete and had an uncomplicated of a viable baby girl. A 1st degree perineal and left labial laceration were repaired. , there were no complications. At the time of discharge she was voiding, ambulating, and passing flatus without difficulty. Her lochia was decreasing appropriately. Her pain was well controlled. She was with good latch and formula supplementing as well as per patient preference. She will f/u in 6 weeks for check. She is undecided regarding contraception. Peripartum Data Infant Delivery Method: Natural Vaginal Laceration Description: Perineal - 1st Degree and Labial Episiotomy description: None complications: none [place] 1: Gender: Female Disposition of : home Discharge Diagnosis (1) Spontaneous vaginal delivery: Status: Acute Status at Discharge Cognitive/behavioral status at discharge: oriented Functional status at discharge: independent ambulation Overall status at discharge: patient is progressing back to baseline Time Spent with Patient Time attestation: Total time spent providing and/or coordinating discharge services: Objective Labs Result Diagrams: 08/01/22 19:30 Exam Narrative Exam Narrative: Gen: NAD, sitting comfortably in bed, appears well CV: RRR, no murmurs Resp: clear to auscultation bilaterally Abd: soft, appropriately tender, fundus firm and below the umbilicus, nondistended Ext: no edema Discharge Plan Discharge Plan Patient Disposition: Home Discharge orders & Medications Prescriptions: New acetaminophen 325 mg Tablet 650 mg PO Q6HR PRN (Reason: Pain, Mild (1-3)) Qty: 30 0RF docusate sodium 100 mg Capsule 100 mg PO DAILY Qty: 30 0RF ibuprofen 600 mg Tablet 600 mg PO Q6HR PRN (Reason: Pain, Mild (1-3)) Qty: 30 0RF Continued prenat.vits,maninder,[id number] Tablet 1 tab PO DAILY (DME) double electric breast pump and supplies Double electric See Rx Instructions Rx Instructions: As directed Discontinued ondansetron 4 mg tablet,disintegrating 4 mg PO Q6H PRN (Reason: nausea and vomiting) Qty: 30 3RF promethazine 25 mg tablet 25 mg PO Q6H PRN (Reason: nausea and vomiting) Qty: 30 1RF Follow up/Referrals: ProviderLibia [Primary Care Provider] - Linda Braswell MD [Physician] - 6 Weeks Diet/Activity/Treatments Diet: Diet as Tolerated and Regular Skin/Wound/Dressing Care Report to your healthcare provider any signs of infection, such as:: chills, fever, increased pain and unusual drainage Visit Report/Discharge Packet Instructions: DI for Vaginal Bleeding Visit Report Forms: Patient Portal/API, Stroke Signs & Symptoms Discharge Data Primary Care Provider: Libia Robbins
== END 2022-08-04 13:55 | disposition home or self-care (01) | DRG 807 ==
PROVIDERS: Admitting Provider Family Medicine; Referring Provider Family Medicine; Visit Provider Family Medicine
DX: O99.824 Streptococcus B carrier state complicating childbirth (principal); Z37.0 Single live birth; Z3A.40 40 weeks gestation of pregnancy; O70.0 First degree perineal laceration during delivery; O69.81X0 Labor and delivery complicated by cord around neck, without compression, not applicable or unspecified; Z67.40 Type O blood, Rh positive; Z20.822 Contact with and (suspected) exposure to COVID-19
CPT/HCPCS: 36415; 59050; 59400; 85025; 86850; 86900; 86901; 87635; C9803; G0379; J2540; J2590; J3010

== ENCOUNTER 2023-08-16 16:58 | Emergency (ER) | payer OTHER, SELFPAY ==
[2023-08-16 17:06] VITALS: BP 117/66; PULSE 69; RESP 16; TEMP 36.3; O2SAT 97; BMI 23.7
[2023-08-16 18:09] LABS: Bacteria Urine None Seen; Culture Indicated Urine Specimen Cultured; RBC Urine 1-5/HPF (0-5/HPF); Squamous Epithelial Cell Urine 0-1 /HPF (0-5/HPF); WBC Urine 5-10/HPF (0-5/HPF)
[2023-08-16 18:24] VITALS: BP 125/74; PULSE 72; RESP 16; O2SAT 98
--- NOTE | 2023-08-16 19:00 | ED.FEMALEGU ---
HPI - Female Genitourinary <Александр Henry PA-C - Last Filed: 08/16/23 19:15> General Chief complaint: Urogenital-Female Stated complaint: states yeast infection Time Seen by Provider: 08/16/23 17:37 Source: patient Mode of arrival: Ambulatory History of Present Illness HPI Narrative: 23-year-old female presents to the ED with 3 days of dysuria, fishy smelling, brown vaginal discharge. Patient denies fever, chills, nausea, vomiting. No new sexual partners. Related Data Home Medications Medication Instructions Recorded Confirmed prenat.vits,maninder,[id number] 1 tab PO DAILY 01/28/22 08/03/22 double electric breast pump and 08/03/22 08/03/22 supplies Previous Rx's Medication Instructions Recorded acetaminophen 325 mg tablet 650 mg (2 x 325 mg) PO Q6HR PRN 08/04/22 Pain, Mild (1-3) #30 tabs docusate sodium 100 mg capsule 100 mg PO DAILY #30 caps 08/04/22 ibuprofen 600 mg tablet 600 mg PO Q6HR PRN Pain, Mild 08/04/22 (1-3) #30 tabs Allergies Allergy/AdvReac Type Severity Reaction Status Date / Time No Known Allergies Allergy Verified 07/28/22 16:21 Review of Systems <Александр Henry PA-C - Last Filed: 08/16/23 19:15> Constitutional Constitutional: Denies chills, Denies fatigue, Denies fever(s), Denies frequent falls, Denies lethargy and Denies weakness Eyes Eyes: Denies change in vision, Denies eye discharge, Denies irritation and Denies loss of vision ENT Ears, Nose, Mouth, and Throat: Denies change in voice, Denies dizziness, Denies neck pain, Denies sore throat and Denies throat swelling Cardiovascular Cardiovascular: Denies chest pain, Denies irregular heart rhythm, Denies lightheadedness, Denies palpitations, Denies dyspnea, Denies dyspnea on exertion and Denies orthopnea Respiratory Respiratory: Denies cough, Denies dyspnea, Denies dyspnea on exertion and Denies wheezing Gastrointestinal Gastrointestinal: Denies abdominal pain, Denies change in bowel habits, Denies diarrhea, Denies nausea and Denies vomiting Genitourinary Genitourinary: Reports dysuria, Reports urinary urgency, Reports vaginal discharge and Reports vaginal odor Comments: Urinary frequency Musculoskeletal Musculoskeletal: Denies neck pain and Denies numbness Integumentary/Breasts Skin/Breast: Denies pruritus, Denies erythema, Denies rash and Denies wounds Neurologic Neurologic: Denies behavioral changes, Denies confusion, Denies dizziness, Denies frequent falls, Denies loss of vision, Denies numbness and Denies weakness Psychiatric Psychiatric: Denies anxiety, Denies behavioral changes, Denies confusion, Denies depression, Denies homicidal ideation and Denies suicidal ideation Endocrine Endocrine: Denies fatigue, Denies flushing and Denies palpitations Hematologic/Lymphatic Hematologic/Lymphatic: Denies easy bruising Allergic/Immunologic Allergic/Immunologic: Denies urticaria, Denies throat swelling and Denies wheezing Patient History <Александр Henry PA-C - Last Filed: 08/16/23 19:15> Medical History Eczema (~2019) Depression (~2020) Anxiety (~2020) Painful menstrual periods (~2014) Meniscus degeneration Shoulder injury Migraine Surgical History [place] teeth extracted Family History Mother Hypertension Father Diabetes mellitus Grandmother Uterine cancer Diabetes mellitus tobacco type: vaping alcohol intake frequency: 0-2 drinks per day Substance Use Type: does not use Exam <Александр Henry PA-C - Last Filed: 08/16/23 19:15> Narrative Exam Narrative: Const General:?cooperative, healthy appearing and comfortable [facility] Head:?normal to inspection Ears:?hearing grossly normal bilaterally Nose:?external nose normal Face and sinus:?normal facial exam and sinuses nontender Mouth:?oral mucosae normal Throat:?posterior oropharynx normal Eyes General:?appearance normal, both eyes and all related structures Neck Neck:?normal visual inspection and no lymphadenopathy noted Resp Effort & Inspection:?normal respiratory effort Auscultation:?clear to auscultation bilaterally Cardio Rate:?regular rate Rhythm:?regular rhythm Genitourinary Exam deferred Neuro General:?patient alert, patient awake and patient oriented x3 Initial Vital Signs Initial Vital Signs: Vital Signs Temperature 97.4 F L 08/16/23 17:06 Pulse Rate 69 08/16/23 17:06 Respiratory Rate 16 08/16/23 17:06 Blood Pressure 117/66 08/16/23 17:06 Pulse Oximetry 97 08/16/23 17:06 Oxygen Delivery Method Room Air 08/16/23 17:06 <Sara Smith DO - Last Filed: 08/26/23 07:35> Initial Vital Signs Initial Vital Signs: Vital Signs Temperature 97.4 F L 08/16/23 17:06 Pulse Rate 69 08/16/23 17:06 Respiratory Rate 16 08/16/23 17:06 Blood Pressure 117/66 08/16/23 17:06 Pulse Oximetry 97 08/16/23 17:06 Oxygen Delivery Method Room Air 08/16/23 17:06 Course <Александр Henry PA-C - Last Filed: 08/16/23 19:15> Orders Ordered: ED Orders 08/16/23 17:35 Urine Culture Stat Urine Microscopic Stat 08/16/23 18:34 Wet Prep Tric BV Natalia Stat Vital Signs Vital signs: Vital Signs - 8 hr 08/16/23 17:06 08/16/23 18:24 Temperature 97.4 F L Pulse Rate 69 72 Respiratory Rate 16 16 Blood Pressure 117/66 125/74 Pulse Oximetry 97 98 Oxygen Delivery Method Room Air Room Air <Sara Smith DO - Last Filed: 08/26/23 07:35> Orders Ordered: ED Orders 08/16/23 17:35 Urine Culture Stat Urine Microscopic Stat 08/16/23 18:34 Wet Prep Tric BV Natalia Stat Vital Signs Vital signs: Vital Signs - 8 hr 08/16/23 17:06 08/16/23 18:24 Temperature 97.4 F L Pulse Rate 69 72 Respiratory Rate 16 16 Blood Pressure 117/66 125/74 Pulse Oximetry 97 98 Oxygen Delivery Method Room Air Room Air MDM - Female Genitourinary <Александр Henry PA-C - Last Filed: 08/16/23 19:15> Lab Data Labs: Lab Results 08/16/23 Range/Units 17:35 Urine RBC 1-5/hpf (0-5/HPF) Urine WBC 5-10/hpf H (0-5/HPF) Ur Squamous Epith Cells 0-1 /hpf D (0-5/HPF) Urine Bacteria None seen (None) Ur Culture Indicated? Specimen cultured Urine Dip Bedside Urine Glucose Negative Bedside Urine Bilirubin - Negative Bedside Urine Ketone - Negative Urine Specific [place] 1.015 Bedside Urine Occult Blood ++ Bedside Urine pH 6.0 Bedside Urine Protein - Negative Bedside Urine Urobilinogen - Negative Bedside Urine Nitrite - Negative Bedside Urine Leukocytes + 70 Esterase MDM Narrative Medical decision making narrative: 23-year-old female presents to the ED with 3 days of dysuria, fishy smelling, brown vaginal discharge. Concern for bacterial vaginosis versus UTI versus other. Will obtain wet prep, UA, urine hCG.. UA is positive for UTI. Urine hCG is negative. Wetb prep positive for bacterial vaginosis. Metronidazole and nitrofurantoin prescribed. Recommend follow-up with PCP as soon as possible. ED return precautions discussed with patient. Patient verbalized understanding. Medical records reviewed: Yes <Sara Smith DO - Last Filed: 08/26/23 07:35> Lab Data Labs: Lab Results 08/16/23 Range/Units 17:35 Urine RBC 1-5/hpf (0-5/HPF) Urine WBC 5-10/hpf H (0-5/HPF) Ur Squamous Epith Cells 0-1 /hpf D (0-5/HPF) Urine Bacteria None seen (None) Ur Culture Indicated? Specimen cultured Urine Dip Bedside Urine Glucose Negative Bedside Urine Bilirubin - Negative Bedside Urine Ketone - Negative Urine Specific [place] 1.015 Bedside Urine Occult Blood ++ Bedside Urine pH 6.0 Bedside Urine Protein - Negative Bedside Urine Urobilinogen - Negative Bedside Urine Nitrite - Negative Bedside Urine Leukocytes + 70 Esterase Discharge Plan Departure Patient Disposition: Home Clinical Impression: Bacterial vaginosis UTI (urinary tract infection) Qualifiers: Urinary tract infection type: acute cystitis Hematuria presence: without hematuria Qualified Code(s): N30.00 - Acute cystitis without hematuria Instructions: DI for Urinary Tract Infection (UTI), DI for Bacterial Vaginosis Activity Restrictions/Additional Instructions: You were evaluated in the ED today for urinary discomfort and vaginal discharge. You are being treated for a urinary tract infection and bacterial vaginosis. Please take your medications as prescribed. Please follow-up with your PCP as soon as possible. Return to the ED if you have worsening symptoms, fever, chills, persistent vomiting. Prescriptions: No Action prenat.vits,maninder,[id number] Tablet 1 tab PO DAILY (DME) double electric breast pump and supplies Double electric See Rx Instructions Rx Instructions: As directed acetaminophen 325 mg Tablet 650 mg PO Q6HR PRN (Reason: Pain, Mild (1-3)) Qty: 30 0RF docusate sodium 100 mg Capsule 100 mg PO DAILY Qty: 30 0RF ibuprofen 600 mg Tablet 600 mg PO Q6HR PRN (Reason: Pain, Mild (1-3)) Qty: 30 0RF Referrals: ProviderLibia [Primary Care Provider] - Stand Alone Forms: Patient Portal/API ED Sign-out <Sara Smith DO - Last Filed: 08/26/23 07:35> Cosign ED Attending Alizaature Attestation: I was immediately available in the department for consultation.
== END 2023-08-16 19:16 | disposition home or self-care (01) ==
PROVIDERS: Emergency Provider Student in an Organized Health Care Education/Training Program
DX: N76.0 Acute vaginitis (principal); N30.00 Acute cystitis without hematuria
CPT/HCPCS: 81003; 81015; 87086; 87210; 99282

== ENCOUNTER → 2023-08-17 18:45 | Outpatient (CLI) | payer OTHER, SELFPAY ==
--- NOTE | 2023-08-17 | DI.MRI.S_ITS ---
PROCEDURE: MR SHOULDER LT WO CON INDICATIONS: POSTERIOR SHOULDER PAIN W/NUMBNESS/TINGLING IN ARM TECHNIQUE: Noncontrast oblique coronal T2 fast spin echo with fat saturation, oblique sagittal T1 spin echo and T2 fast spin echo with fat saturation, axial T1 spin echo and T2 fast spin echo with fat saturation through the shoulder. COMPARISON: [facility], MR, MR CERVICAL SPINE WO CON, 08/17/2023, 18:54. FINDINGS: Image quality: Excellent. Rotator cuff: The supraspinatus, infraspinatus, and subscapularis tendons appear intact throughout. Sagittal images demonstrate no rotator cuff muscle atrophy. Bones and bursae: No bone marrow contusions or fractures. No acromioclavicular joint degeneration. The acromion demonstrates conventional anatomy, without an os acromiale. No pathologic subacromial-subdeltoid or subcoracoid bursal fluid is present. Capsule and soft tissues: Labrum is intact The long head of the biceps tendon demonstrates normal location and morphology. The rotator interval appears normal, without fibrosis. The coracohumeral ligament is normal in thickness. Slightly prominent axillary lymph nodes are noted measuring up to 0.8 cm in short axis, consider within normal limits by size criteria. IMPRESSION: 1. No internal derangement of the left shoulder. 2. Mildly prominent axillary lymph node, nonspecific and most likely reactive. Recommend clinical follow-up. Dictated by: Darron Etienne M.D. on 08/18/2023 at 12:52 Approved by: Darron Etienne M.D. on 08/18/2023 at 22:41
--- NOTE | 2023-08-17 | DI.MRI.S_ITS ---
PROCEDURE: MR CERVICAL SPINE WO CON INDICATIONS: POSTERIOR SHOULDER PAIN W/NUMBNESS/TINGLING IN ARM TECHNIQUE: Noncontrast sagittal T1 spin echo and T2 fast spin echo, sagittal STIR, foraminal oblique sagittal T2 fast spin echo, and axial gradient echo or T2 fast spin echo through the cervical spine. COMPARISON: None. FINDINGS: Image quality: Excellent. Alignment and Curvature: There is normal bony alignment. Bone Marrow: Marrow demonstrates normal overall signal. Spinal Cord: Visualized spinal cord has normal size and signal. No cerebellar tonsillar herniation. Paraspinous Soft Tissues: No paravertebral masses. Prevertebral soft tissues are normal in thickness. C2-C3: Normal appearance. C3-C4: Minimal disc bulge. No canal stenosis or foraminal stenosis. C4-C5: Normal appearance. C5-C6: Normal appearance. C6-C7: Normal appearance. C7-T1: Normal appearance. IMPRESSION: Minimal disc bulge at C3-C4. Otherwise negative study. No canal stenosis or foraminal stenosis. Dictated by: Prashanth Miguel M.D. on 08/18/2023 at 7:48 Approved by: Prashanth Miguel M.D. on 08/18/2023 at 7:50
== END ==
PROVIDERS: Referring Provider Student in an Organized Health Care Education/Training Program; Visit Provider Student in an Organized Health Care Education/Training Program
DX: G54.9 Nerve root and plexus disorder, unspecified (principal)
CPT/HCPCS: 72141; 73221

== ENCOUNTER 2023-09-27 14:39 | Emergency (ER) | payer OTHER, SELFPAY ==
[2023-09-27 14:45] VITALS: BP 110/72; PULSE 77; RESP 18; TEMP 36.6; O2SAT 98; BMI 24.0
[2023-09-27 15:33] LABS: Influenza A - CEPHEID Flu A NEGATIVE (NEGATIVE); Influenza B - CEPHEID Flu B NEGATIVE (NEGATIVE); Respiratory Syncytial Virus Negative (Negative)
[2023-09-27 15:34] LABS: COVID-19 CEPHEID 4-PLEX PCR Negative (Negative)
--- NOTE | 2023-09-27 19:12 | ED.URI ---
HPI - URI/Sore Throat <Trudy Turner PA-C - Last Filed: 09/27/23 19:16> General Chief Complaint: Upper Respiratory Symptoms Stated Complaint: sore throat, headache, cough Time Seen by Provider: 09/27/23 15:16 Source: patient Mode of arrival: Ambulatory History of Present Illness HPI Narrative: Patient is a 23-year-old female who presents with 1 day of sore throat, congestion, headache and cough. She reports her daughter tested positive for COVID 10 days ago and has been recovering at home. She denies fever or chills. Has not taken a home COVID test. Reports she is a former smoker, no current lung disease. She is requesting a COVID test. Related Data Home Medications Medication Instructions Recorded Confirmed prenat.vits,maninder,bro-zvza-mzgqv 1 tab PO DAILY 01/28/22 08/03/22 double electric breast pump and 08/03/22 08/03/22 supplies Previous Rx's Medication Instructions Recorded acetaminophen 325 mg tablet 650 mg (2 x 325 mg) PO Q6HR PRN 08/04/22 Pain, Mild (1-3) #30 tabs docusate sodium 100 mg capsule 100 mg PO DAILY #30 caps 08/04/22 ibuprofen 600 mg tablet 600 mg PO Q6HR PRN Pain, Mild 08/04/22 (1-3) #30 tabs Allergies Allergy/AdvReac Type Severity Reaction Status Date / Time No Known Allergies Allergy Verified 07/28/22 16:21 Review of Systems <Trudy Turner PA-C - Last Filed: 09/27/23 19:16> Review of Systems ROS Unobtainable: All systems reviewed & are unremarkable except as noted in HPI and below Patient History <Trudy Turner PA-C - Last Filed: 09/27/23 19:16> Medical History Eczema (~2019) Depression (~2020) Anxiety (~2020) Painful menstrual periods (~2014) Meniscus degeneration Shoulder injury Migraine Surgical History [place] teeth extracted Family History Mother Hypertension Father Diabetes mellitus Grandmother Uterine cancer Diabetes mellitus Social History marital status: unmarried,living together number of children: 0 household members: significant other lives independently: Yes housing: apartment pets and animals: No education level: high school occupational status: employed current occupational exposures/hazards: No special deena needs: No travel history: recent ([place], [facility], [facility]) seatbelt use: always water heater temp set < 120 deg: Yes (Will check and adjust) working smoke detector in home: Yes fire extinguisher in home: Yes carbon monox detector in home: Yes firearms in home: No do you feel safe at home: Yes Smoking Status: Former smoker Tobacco: How many years used: 0 (less than one year) second hand exposure: No alcohol intake: former substance use type: marijuana (Previously) during the past year weight has: remained stable well-balanced diet: about half the time daily servings fruits/ve-1 caffeine: Yes Type(s) of exercise: walking, bicycling (exercise bike) and weight lifting Smoking Status: Former smoker tobacco type: vaping alcohol intake frequency: holidays/special occasions only Substance Use Type: does not use Exam <Trudy Turner PA-C - Last Filed: 09/27/23 19:16> Narrative Exam Narrative: GENERAL: 23 year old patient appears stated age. Well-developed patient, in no distress. NEURO: AOx3. HEAD: Atraumatic. Normocephalic. EYES: Pupils equal round and reactive. Extraocular motions intact. No scleral icterus. No injection or drainage. ENT: Nose without bleeding or purulent drainage. Throat without erythema, tonsillar hypertrophy or exudate. Airway patent. NECK: Trachea midline. Non tender CARDIOVASCULAR: Regular rate and rhythm without murmurs, gallops, or rubs. RESPIRATORY: Clear to auscultation. Breath sounds equal bilaterally. No wheezes, rales, or rhonchi. SKIN: No rash or erythema of visible areas Initial Vital Signs Initial Vital Signs: Vital Signs Temperature 97.8 F 09/27/23 14:45 Pulse Rate 77 09/27/23 14:45 Respiratory Rate 18 09/27/23 14:45 Blood Pressure 110/72 01/23/24 14:45 Pulse Oximetry 98 09/27/23 14:45 Oxygen Delivery Method Room Air 09/27/23 14:45 <Rosario Huang DO - Last Filed: 09/29/23 06:53> Initial Vital Signs Initial Vital Signs: Vital Signs Temperature 97.8 F 09/27/23 14:45 Pulse Rate 77 09/27/23 14:45 Respiratory Rate 18 09/27/23 14:45 Blood Pressure 110/72 09/27/23 14:45 Pulse Oximetry 98 09/27/23 14:45 Oxygen Delivery Method Room Air 09/27/23 14:45 Course <Trudy Turner PA-C - Last Filed: 09/27/23 19:16> Orders Ordered: ED Orders 09/27/23 14:50 Covid-19 + FLU A/B + RSV - PCR Stat Vital Signs Vital signs: Vital Signs - 8 hr 09/27/23 14:45 Temperature 97.8 F Pulse Rate 77 Respiratory Rate 18 Blood Pressure 110/72 Pulse Oximetry 98 Oxygen Delivery Method Room Air <Rosario Huang DO - Last Filed: 09/29/23 06:53> Orders Ordered: ED Orders 09/27/23 14:50 Covid-19 + FLU A/B + RSV - PCR Stat Vital Signs Vital signs: Vital Signs - 8 hr 09/27/23 14:45 Temperature 97.8 F Pulse Rate 77 Respiratory Rate 18 Blood Pressure 110/72 Pulse Oximetry 98 Oxygen Delivery Method Room Air MDM - URI/Sore Throat <Trudy Turner PA-C - Last Filed: 09/27/23 19:16> Lab Data Labs: Lab Results 09/27/23 Range/Units 14:50 SARS-CoV-2 (PCR) Negative (Negative) Influenza A (RT-PCR) Flu a negative (NEGATIVE) Influenza B (RT-PCR) Flu b negative (NEGATIVE) RSV (PCR) Negative (Negative) MDM Narrative Medical decision making narrative: Multiple etiologies for patient's symptoms considered including, but not limited to: COVID infection, flu, other viral upper respiratory illness Patient is a very well-appearing 23-year-old with normal vital signs. Respiratory PCR test negative for COVID, flu, RSV. She asked about strep throat. She does have a sore throat but has had no fever and does have a cough; strep unlikely by [facility] criteria. Suspect patient has a viral upper respiratory infection. Encouraged rest, hydration, Tylenol for body aches or fever, [id number] cough and cold medicines such as Robitussin or DayQuil. Patient declined a work note. She understands return precautions. Patient's symptoms improved over duration of stay with above-stated therapies. Findings and discharge diagnosis discussed with patient/family followed by verbalization of understanding Return precautions discussed with patient/family whom verbalize understanding of diagnosis and plan <Rosario Huang, - Last Filed: 09/29/23 06:53> Lab Data Labs: Lab Results 09/27/23 Range/Units 14:50 SARS-CoV-2 (PCR) Negative (Negative) Influenza A (RT-PCR) Flu a negative (NEGATIVE) Influenza B (RT-PCR) Flu b negative (NEGATIVE) RSV (PCR) Negative (Negative) Discharge Plan Departure Patient Disposition: Home Clinical Impression: Upper respiratory infection, viral Instructions: DI for Viral Upper Respiratory Infection -- Adult Activity Restrictions/Additional Instructions: *You have been diagnosed with a viral upper respiratory infection. Your COVID, influenza and RSV test was all negative. Based on your symptoms, you have a low risk of strep throat. Your symptoms and clinical exam are most consistent with a viral syndrome. I would advised rest, hydration, tylenol/motrin for fever/aches, honey for sore throat/cough. Antibiotics are not indicated for this diagnosis. Most viral infections will resolve in 7-10 days, although a lingering cough is common for up to 3 weeks. If fever lasts >5 days or if you develop difficulty breathing or other concerning symptoms, please seek care at walk-in clinic or ER. *What to do: *Please continue to take your regular medications as directed. No new medication prescriptions sent to your pharmacy: [ ] [ ] New medication written as a paper prescription [x] No new medications given *Please follow up with your primary care provider in 2-3 days, call for an appointment. Let them know you were seen in the Emergency Department and that we ask that you be seen in follow up. We will electronically transmit a record of today's note if your PCP is in our system *If you do not have a primary care provider please contact the [facility] Resource line at [phone]. They will ask some questions about your medical history and help get you set up with a doctor in the community. *Return to Emergency Department if you should have any new, worsening or concerning symptoms, such as [fever greater than 101 F, shaking chills, worsening pain, persistent vomiting or other concerning symptoms]. Prescriptions: No Action prenat.vits,maninder,vwv-eanj-cnrcv Tablet 1 tab PO DAILY (DME) double electric breast pump and supplies Double electric See Rx Instructions Rx Instructions: As directed acetaminophen 325 mg Tablet 650 mg PO Q6HR PRN (Reason: Pain, Mild (1-3)) Qty: 30 0RF docusate sodium 100 mg Capsule 100 mg PO DAILY Qty: 30 0RF ibuprofen 600 mg Tablet 600 mg PO Q6HR PRN (Reason: Pain, Mild (1-3)) Qty: 30 0RF Referrals: ProviderLibia [Primary Care Provider] - Stand Alone Forms: Patient Portal/API ED Sign-out <Rosario Huang DO - Last Filed: 09/29/23 06:53> Cosign ED Attending Coslidiaature Attestation: I was available for consultation.
== END 2023-09-27 15:43 | disposition home or self-care (01) ==
PROVIDERS: Emergency Medicine; Emergency Provider Physician Assistant
DX: J06.9 Acute upper respiratory infection, unspecified (principal); Z20.822 Contact with and (suspected) exposure to COVID-19
CPT/HCPCS: 0241U; 99281; 99282

== ENCOUNTER 2023-12-15 22:05 | Emergency (ER) | payer OTHER, SELFPAY ==
[2023-12-15 22:10] VITALS: BP 109/66; PULSE 88; RESP 16; TEMP 36.6; O2SAT 97; BMI 23.9
--- NOTE | 2023-12-15 22:24 | PC.NURSE ---
Patient stated she had a hard time swallowing around 1500 prior to taking Benadryl. She is moving air freely and can speak in full sentences without any signs of distress or increase of work of breathing.
--- NOTE | 2023-12-15 22:25 | ED.ALLEREA ---
HPI - Allergic Reaction General Chief complaint: Allergic Reaction Stated complaint: states itching all over, now hives Time Seen by Provider: 12/15/23 22:16 Source: patient and other Mode of arrival: Ambulatory History of Present Illness HPI narrative: Patient is a 23-year-old female who states that last evening she was lying in bed. She took a short nap and when she woke up she was itching all over. She states she had hives as well. No problems breathing. No fevers. No vomiting. No diarrhea. No new exposures that she knows of. She took a shower and this actually made things somewhat worse. She did take a Zyrtec which improve things a small amount and then took Benadryl today. She reports that the itching has almost completely resolved but not completely gone. She contacted the nurse advice line who advised that she come into the emergency department for evaluation. Related Data Home Medications Medication Instructions Recorded Confirmed prenat.vits,maninder,ecl-[id number] 1 tab PO DAILY 01/28/22 08/03/22 double electric breast pump and 08/03/22 08/03/22 supplies Previous Rx's Medication Instructions Recorded acetaminophen 325 mg tablet 650 mg (2 x 325 mg) PO Q6HR PRN 08/04/22 Pain, Mild (1-3) #30 tabs docusate sodium 100 mg capsule 100 mg PO DAILY #30 caps 08/04/22 ibuprofen 600 mg tablet 600 mg PO Q6HR PRN Pain, Mild 08/04/22 (1-3) #30 tabs Allergies Allergy/AdvReac Type Severity Reaction Status Date / Time No Known Allergies Allergy Verified 07/28/22 16:21 Review of Systems Constitutional Constitutional: Reports system reviewed and no additional complaints, except as documented Respiratory Respiratory: Reports system reviewed and no additional complaints, except as documented Integumentary/Breasts Skin/Breast: Reports system reviewed and no additional complaints, except as documented Hematologic/Lymphatic On Anticoagulants: No Allergic/Immunologic Allergic/Immunologic: Reports system reviewed and no additional complaints, except as documented Patient History Medical History Eczema (~2019) Depression (~2020) Anxiety (~2020) Painful menstrual periods (~2014) Meniscus degeneration Shoulder injury Migraine Surgical History [place] teeth extracted Family History Mother Hypertension Father Diabetes mellitus Grandmother Uterine cancer Diabetes mellitus Social History marital status: unmarried,living together number of children: 0 household members: significant other lives independently: Yes housing: apartment pets and animals: No education level: high school occupational status: employed current occupational exposures/hazards: No special deena needs: No travel history: recent ([employer]) seatbelt use: always water heater temp set < 120 deg: Yes (Will check and adjust) working smoke detector in home: Yes fire extinguisher in home: Yes carbon monox detector in home: Yes firearms in home: No do you feel safe at home: Yes Smoking Status: Former smoker Tobacco: How many years used: 0 (less than one year) second hand exposure: No alcohol intake: former substance use type: marijuana (Previously) during the past year weight has: remained stable well-balanced diet: about half the time daily servings fruits/ve-1 caffeine: Yes Type(s) of exercise: walking, bicycling (exercise bike) and weight lifting Smoking Status: Former smoker tobacco type: vaping alcohol intake frequency: holidays/special occasions only Substance Use Type: does not use Exam Initial Vital Signs Initial Vital Signs: Vital Signs Temperature 97.8 F 12/15/23 22:10 Pulse Rate 88 12/15/23 22:10 Respiratory Rate 16 12/15/23 22:10 Blood Pressure 109/66 12/15/23 22:10 Pulse Oximetry 97 12/15/23 22:10 Oxygen Delivery Method Room Air 12/15/23 22:10 Const General: cooperative, comfortable and No ill appearing HENMT Mouth: oral mucosae normal Resp Effort & Inspection: normal respiratory effort Auscultation: clear to auscultation bilaterally Skin General: no rashes or lesions noted Neuro General: patient alert, patient awake and moves all extremities Extrem General: capillary refill normal Course Vital Signs Vital signs: Vital Signs - 8 hr 12/15/23 22:10 Temperature 97.8 F Pulse Rate 88 Respiratory Rate 16 Blood Pressure 109/66 Pulse Oximetry 97 Oxygen Delivery Method Room Air MDM - Allergic Reaction MDM Narrative Medical decision making narrative: Patient's symptoms were last evening and they seem to now have almost completely resolved after Benadryl. No fevers. Certainly not an anaphylactic reaction. Unsure the exact etiology and I did discuss this with her. She can take Zyrtec as needed. Benadryl as needed as well. She was given return precautions. She expressed understanding and agreement with plan. Discharge Plan Departure Patient Disposition: Home Clinical Impression: Urticaria Instructions: DI for Hives Activity Restrictions/Additional Instructions: You can continue to take the Zyrtec once a day. You can use the Benadryl as needed as well. Return to the emergency department for new symptoms. Prescriptions: No Action prenat.vits,maninder,eck-gmyb-obkzz Tablet 1 tab PO DAILY (DME) double electric breast pump and supplies Double electric See Rx Instructions Rx Instructions: As directed acetaminophen 325 mg Tablet 650 mg PO Q6HR PRN (Reason: Pain, Mild (1-3)) Qty: 30 0RF docusate sodium 100 mg Capsule 100 mg PO DAILY Qty: 30 0RF ibuprofen 600 mg Tablet 600 mg PO Q6HR PRN (Reason: Pain, Mild (1-3)) Qty: 30 0RF Referrals: ProviderLibia [Primary Care Provider] - Stand Alone Forms: Patient Portal/API
[2023-12-15 22:29] VITALS: BP 109/69; PULSE 80; RESP 18; O2SAT 99
== END 2023-12-15 22:30 | disposition home or self-care (01) ==
PROVIDERS: Emergency Provider Emergency Medicine
DX: L50.9 Urticaria, unspecified (principal)
CPT/HCPCS: 99281

== ENCOUNTER 2024-02-12 13:28 | Emergency (ER) | payer OTHER, SELFPAY ==
[2024-02-12 13:44] VITALS: BP 101/56; PULSE 65; RESP 20; TEMP 36.4; O2SAT 98; BMI 24.7
--- NOTE | 2024-02-12 14:21 | ED_ITS ---
HPI - Female Genitourinary General Chief complaint: Urogenital-Female Stated complaint: Possible UTI Time Seen by Provider: 02/12/24 13:42 Source: patient Mode of arrival: Ambulatory History of Present Illness HPI Narrative: 23F without chronic medical history presents with the chief complaint of Dysuria, frequency and urgency for the past few days. She denies any fever chills nor nausea or vomiting but does have some minimal bilateral back pain. She has had urinary tract infections in the past and states this feels quite similar. She is currently on her menses. She denies any vaginal discharge. Related Data Home Medications Medication Instructions Recorded Confirmed prenat.vits,maninder,gcz-[id number] 1 tab PO DAILY 01/28/22 08/03/22 double electric breast pump and 08/03/22 08/03/22 supplies Previous Rx's Medication Instructions Recorded acetaminophen 325 mg tablet 650 mg (2 x 325 mg) PO Q6HR PRN 08/04/22 Pain, Mild (1-3) #30 tabs docusate sodium 100 mg capsule 100 mg PO DAILY #30 caps 08/04/22 ibuprofen 600 mg tablet 600 mg PO Q6HR PRN Pain, Mild 08/04/22 (1-3) #30 tabs cephalexin 500 mg capsule 500 mg PO Q6H 7 days #28 caps 02/12/24 Allergies Allergy/AdvReac Type Severity Reaction Status Date / Time No Known Allergies Allergy Verified 07/28/22 16:21 Review of Systems Review of Systems Narrative: GENERAL: see HPI HEENT: Denies sinus pain, ear pain, sore throat, difficulty swallowing, dizziness. RESPIRATORY: Denies dyspnea, cough, wheezing, hemoptysis, sputum. CARDIOVASCULAR: Denies chest pain, palpitations, orthopnea, edema, GASTROINTESTINAL: Denies nausea, vomiting, abdominal pain, diarrhea, constipation, melena. : see HPI MUSCULOSKELETAL: denies weakness, joint pain, or bony pain SKIN: Denies rash, skin lesions, or other NEUROLOGIC: Denies weakness, headache, numbness, change in speech, confusion, seizures, incoordination. PSYCHIATRIC: No concerning psychosocial issues. 12 point review of systems is negative except for those stated above Patient History Medical History Eczema (~2019) Depression (~2020) Anxiety (~2020) Painful menstrual periods (~2014) Meniscus degeneration Shoulder injury Migraine Surgical History [place] teeth extracted Family History Mother Hypertension Father Diabetes mellitus Grandmother Uterine cancer Diabetes mellitus tobacco type: vaping alcohol intake frequency: holidays/special occasions only Substance Use Type: does not use Exam Narrative Exam Narrative: GEN: AOx3 and in mild distress EYES: Pupils are equal, round, and reactive to light and accommodation. Extraoccular muscles are intact bilaterally. There is no subconjunctival hemorrhage or exudate. CHEST: Lungs are clear to auscultation bilaterally and free of wheezes, rales, or rhonchi. Heart rate is regular rhythm, there are no murmurs, clicks, rubs, or gallops. There is no chest wall tenderness. ABD: Abdomen is soft and nontender. There is no guarding or rebound. Bowel sounds are normal in all 4 quadrants. There is no mass or organomegaly. EXT: Full painless ROM of all extremities with no loss of sensation or strength. BACK: mild B/L CVA tenderness SKIN: Warm, pink, and dry. No erythema or rash Initial Vital Signs Initial Vital Signs: Vital Signs Temperature 97.6 F 02/12/24 13:44 Pulse Rate 65 02/12/24 13:44 Respiratory Rate 20 02/12/24 13:44 Blood Pressure 101/56 L 02/12/24 13:44 Pulse Oximetry 98 02/12/24 13:44 Oxygen Delivery Method Room Air 02/12/24 13:44 Course Orders Ordered: ED Orders 02/12/24 13:55 Urine Culture Stat Urine Microscopic Stat Vital Signs Vital signs: Vital Signs - 8 hr 02/12/24 13:44 Temperature 97.6 F Pulse Rate 65 Respiratory Rate 20 Blood Pressure 101/56 L Pulse Oximetry 98 Oxygen Delivery Method Room Air MDM - Female Genitourinary Lab Data Labs: Point of Care Testing Test Results Negative Urine Dip Bedside Urine Glucose Negative Bedside Urine Bilirubin - Negative Bedside Urine Ketone - Negative Urine Specific [place] 1.020 Bedside Urine Occult Blood +++ Bedside Urine pH 5.5 Bedside Urine Protein - Negative Bedside Urine Urobilinogen - Negative Bedside Urine Nitrite - Negative Bedside Urine Leukocytes +++ 500 Esterase MDM Narrative Medical decision making narrative: [23] year old patient presents with urinary symptoms including dysuria, frequency and urgency Multiple etiologies for patient's symptoms considered including, but not limited to: [ UTI, cystitis versus pyelonephritis versus other] Prior Charts reviewed in our EMR Primary Historian: patient Labs reviewed and interpreted by myself: urine consistent with infectious process, negative. We discussed the potential utility of broad screening labs but sure the opinion that given are reassuring her history and physical exam as well as vitals are that it is unlikely to change the course Imaging considered but will hold off for now given her relatively straight forward presentation Patient's symptoms improved over duration of stay with above-stated therapies. Findings and discharge diagnosis discussed with patient/family followed by verbalization of understanding Return precautions discussed with patient/family whom verbalize understanding of diagnosis and plan Discharge Plan Departure Patient Disposition: Home Clinical Impression: Urinary tract infection Instructions: DI for Urinary Tract Infection (UTI) Activity Restrictions/Additional Instructions: *You have been diagnosed with [urinary tract infection, possible early pyelonephritis] *What to do: *Please continue to take your regular medications as directed. [ x] New medication prescriptions sent to your pharmacy: [[facility] in [place]] [ ] New medication written as a paper prescription [ ] No new medications given *Please follow up with your primary care provider in 2-3 days, call for an appointment. Let them know you were seen in the Emergency Department and that we ask that you be seen in follow up. We will electronically transmit a record of today's note if your PCP is in our system *If you do not have a primary care provider please contact the [facility] Resource line at [phone]. They will ask some questions about your medical history and help get you set up with a doctor in the community. *Return to Emergency Department if you should have any new, worsening or concerning symptoms, such as [fever greater than 101 F, shaking chills, worsening pain, persistent vomiting or other bothersome symptoms] Prescriptions: New cephalexin 500 mg capsule 500 mg PO Q6H 7 Days Qty: 28 0RF No Action prenat.vits,maninder,xpf-cqac-laqtx Tablet 1 tab PO DAILY (DME) double electric breast pump and supplies Double electric See Rx Instructions Rx Instructions: As directed acetaminophen 325 mg Tablet 650 mg PO Q6HR PRN (Reason: Pain, Mild (1-3)) Qty: 30 0RF docusate sodium 100 mg Capsule 100 mg PO DAILY Qty: 30 0RF ibuprofen 600 mg Tablet 600 mg PO Q6HR PRN (Reason: Pain, Mild (1-3)) Qty: 30 0RF Referrals: ProviderLibia [Primary Care Provider] - Stand Alone Forms: Patient Portal/API
[2024-02-12 14:31] LABS: RBC Urine 1-5/HPF (0-5/HPF); Urine Volume 10mL (spun); WBC Urine >100/HPF (0-5/HPF)
[2024-02-12 14:32] LABS: Bacteria Urine Few (2-10); Squamous Epithelial Cell Urine None Seen (0-5/HPF)
[2024-02-12 14:33] LABS: Culture Indicated Urine Specimen Cultured
== END 2024-02-12 14:32 | disposition home or self-care (01) ==
PROVIDERS: Emergency Provider Emergency Medicine
DX: N39.0 Urinary tract infection, site not specified (principal)
CPT/HCPCS: 81003; 81015; 81025; 87077; 87086; 87147; 99282; 99283

== ENCOUNTER → 2024-05-05 08:28 | Outpatient (CLI) | payer OTHER, SELFPAY ==
--- NOTE | 2024-05-05 08:28 | DI.MRI.S_ITS ---
PROCEDURE: MR CERVICAL SPINE WO CON INDICATIONS: CERVICAL RADICULOPATHY TECHNIQUE: Noncontrast sagittal T1 spin echo and T2 fast spin echo, sagittal STIR, foraminal oblique sagittal T2 fast spin echo, and axial gradient echo or T2 fast spin echo through the cervical spine. COMPARISON: [facility], CR, XR CERVICAL SPINE 2 OR 3 VIEWS, 04/26/2024, 10:36. [facility], , MR CERVICAL SPINE WO CON, 08/17/2023, 18:54. FINDINGS: Image quality: Excellent Straightening of the cervical spine. Marrow signal is normal for age. Vertebral body heights are well-maintained. No significant disc bulge. Multilevel mild disc desiccation. Core signal: Normal Right neural foraminal stenosis: None. Left neural foraminal stenosis: None. Axial images: C2-3: Unremarkable C3-4: Unremarkable C4-5: Unremarkable C5-6: Unremarkable C6-7: Unremarkable C7-T1: Unremarkable Soft tissue findings: Unremarkable IMPRESSION: No significant degenerative changes in the cervical spine. No central canal or neural foraminal stenosis in the cervical spine. Dictated by: Matilde Crow M.D. on 05/08/2024 at 10:51 Approved by: Matilde Crow M.D. on 05/08/2024 at 11:01
== END ==
PROVIDERS: Referring Provider Physical Medicine & Rehabilitation; Visit Provider Physical Medicine & Rehabilitation
DX: M54.12 Radiculopathy, cervical region (principal)
CPT/HCPCS: 72141

== ENCOUNTER → 2024-05-23 11:01 | Outpatient (CLI) | payer OTHER, SELFPAY ==
--- NOTE | 2024-05-23 11:04 | DI.MRI.S_ITS ---
PROCEDURE: MR BRACHIAL PLEXUS WITHOUT CON COMPARISON: [facility], MR, MR CERVICAL SPINE WO CON, 05/05/2024, 8:39. [facility], MR, MR SHOULDER LT WO CON, 08/17/2023, 19:14. INDICATIONS: Left brachial plexus dysfunction FINDINGS: Visualized brachial plexus demonstrates no discernible areas of abnormal mass or signal within the roots, trunks, divisions, cords and branches. Vascular flow voids appear patent. Muscular and osseous structures are unremarkable. Visualized portions of the lungs are within normal limits. IMPRESSION: No visualized abnormality. Dictated by: Marysol Chavez M.D. on 05/23/2024 at 20:53 Approved by: Marysol Chavez M.D. on 05/23/2024 at 20:55
== END ==
LOC: MRI 11:02
PROVIDERS: Referring Provider Physical Medicine & Rehabilitation; Visit Provider Physical Medicine & Rehabilitation
DX: G54.0 Brachial plexus disorders (principal)
CPT/HCPCS: 71550

== ENCOUNTER 2024-07-11 18:06 | Emergency (ER) | payer OTHER, SELFPAY ==
[2024-07-11 18:18] VITALS: BP 114/73; PULSE 79; RESP 17; TEMP 37.2; O2SAT 97; BMI 26.5
--- NOTE | 2024-07-11 19:05 | PC.NURSE ---
Assumed cares from SHAYNE Oneal. Pt sitting up in [facility]. Appears in NAD. VSS. Reports that she is not able to keep anything down at all. Says that water, food comes right back up. aware.
--- NOTE | 2024-07-11 19:05 | ED_ITS ---
HPI - Headache General Chief Complaint: Headache Stated Complaint: sinus px, headache, loc Time Seen by Provider: 07/11/24 19:04 Source: patient Mode of arrival: Ambulatory Limitations: no limitations History of Present Illness HPI Narrative: Patient is a 24-year-old female who is here for evaluation of 5 days of a headache. She states the headache started gradually it has progressed with the past 5 days. Has tried Tylenol and ibuprofen at home without relief. She also states she feels like she was having sinus congestion. No sore throat. No fevers. No neck pain. She does have a history of headaches but this seems to be worse than prior. Related Data Home Medications Medication Instructions Recorded Confirmed prenat.vits,maninder,jyg-pmjo-mguyt 1 tab PO DAILY 01/28/22 08/03/22 double electric breast pump and 08/03/22 08/03/22 supplies duloxetine 20 mg capsule,delayed mg PO 07/11/24 release norelgestromin 150 mcg-e.estradiol 1 patch topical 07/11/24 35 mcg/24 hr weekly transderm patch (Xulane) Previous Rx's Medication Instructions Recorded acetaminophen 325 mg tablet 650 mg (2 x 325 mg) PO Q6HR PRN 08/04/22 Pain, Mild (1-3) #30 tabs docusate sodium 100 mg capsule 100 mg PO DAILY #30 caps 08/04/22 ibuprofen 600 mg tablet 600 mg PO Q6HR PRN Pain, Mild 08/04/22 (1-3) #30 tabs Allergies Allergy/AdvReac Type Severity Reaction Status Date / Time No Known Allergies Allergy Verified 07/11/24 18:23 Review of Systems Review of Systems Narrative: See HPI Patient History Medical History Eczema (~2019) Depression (~2020) Anxiety (~2020) Painful menstrual periods (~2014) Meniscus degeneration Shoulder injury Migraine Surgical History [place] teeth extracted Family History Mother Hypertension Father Diabetes mellitus Grandmother Uterine cancer Diabetes mellitus Social History marital status: unmarried,living together number of children: 0 household members: significant other lives independently: Yes housing: apartment pets and animals: No education level: high school occupational status: employed current occupational exposures/hazards: No special deena needs: No travel history: recent ([place], [facility], [facility]) seatbelt use: always water heater temp set < 120 deg: Yes (Will check and adjust) working smoke detector in home: Yes fire extinguisher in home: Yes carbon monox detector in home: Yes firearms in home: No do you feel safe at home: Yes Smoking Status: Current every day smoker Tobacco: How many years used: 0 (less than one year) second hand exposure: No alcohol intake: former substance use type: marijuana (Previously) during the past year weight has: remained stable well-balanced diet: about half the time daily servings fruits/ve-1 caffeine: Yes Type(s) of exercise: walking, bicycling (exercise bike) and weight lifting Smoking Status: Current every day smoker tobacco type: vaping alcohol intake frequency: holidays/special occasions only Substance Use Type: does not use Exam Initial Vital Signs Initial Vital Signs: Vital Signs Temperature 98.9 F 07/11/24 18:18 Pulse Rate 79 07/11/24 18:18 Respiratory Rate 17 07/11/24 18:18 Blood Pressure 114/73 07/11/24 18:18 Pulse Oximetry 97 07/11/24 18:18 Oxygen Delivery Method Room Air 07/11/24 18:18 Const General: cooperative, comfortable and No ill appearing HENMT Head: normal to inspection and normocephalic Resp Effort & Inspection: normal respiratory effort Cardio Rate: regular rate Skin General: no rashes or lesions noted Neuro General: patient alert, patient awake, patient oriented x3 and moves all extremities Cognition: normal cognition Speech: speech normal Extrem General: normal to inspection Course Orders Ordered: Discontinued Medications Diphenhydramine HCl (Diphenhydramine 50 Mg/Ml Vial) 25 mg IV NOW ONE Stop: 07/11/24 19:06 Last Admin: 07/11/24 19:16 Dose: 25 mg Documented By: Ketorolac Tromethamine (Ketorolac 30 Mg/Ml Vial) 15 mg IV NOW ONE Stop: 07/11/24 19:06 Last Admin: 07/11/24 19:16 Dose: 15 mg Documented By: Metoclopramide HCl (Metoclopramide 10 Mg/2 Ml Inj) 10 mg IV NOW ONE Stop: 07/11/24 19:06 Last Admin: 07/11/24 19:19 Dose: 10 mg Documented By: Vital Signs Vital signs: Vital Signs - 8 hr 07/11/24 18:18 07/11/24 19:33 07/11/24 20:34 Temperature 98.9 F 98 F Pulse Rate 79 85 Respiratory Rate 17 19 Blood Pressure 114/73 108/75 Pulse Oximetry 97 91 98 Oxygen Delivery Method Room Air Room Air MDM - Headache MDM Narrative Medical decision making narrative: Gradual onset of the headache with a history of headaches. Low suspicion for meningitis. No trauma. No indication for radiologic studies. Reports fast improvement of symptoms after treatment here and states she feels well enough to go home. Will discharge home with return precautions. She expressed understanding and agreement with plan. Discharge Plan Departure Patient Disposition: Home Clinical Impression: Headache Instructions: DI for Headache Activity Restrictions/Additional Instructions: Continue to take all of your medications as directed. You can take Tylenol and or ibuprofen for discomfort. Return to the emergency department for new or worsening symptoms. Prescriptions: No Action prenat.vits,maninder,his-chon-zclej Tablet 1 tab PO DAILY (DME) double electric breast pump and supplies Double electric See Rx Instructions Rx Instructions: As directed acetaminophen 325 mg Tablet 650 mg PO Q6HR PRN (Reason: Pain, Mild (1-3)) Qty: 30 0RF docusate sodium 100 mg Capsule 100 mg PO DAILY Qty: 30 0RF ibuprofen 600 mg Tablet 600 mg PO Q6HR PRN (Reason: Pain, Mild (1-3)) Qty: 30 0RF norelgestromin-ethin.estradiol [Xulane] 150-35 mcg/24 hr patch weekly 1 patch topical duloxetine 20 mg capsule,delayed release(DR/EC) PO Referrals: Provider,Libia MCCALLUM [Primary Care Provider] - Stand Alone Forms: Patient Portal/API/Survey
[2024-07-11] MEDS: KETOROLAC 30 MG/ML VIAL 15 MG IV (19:16)
[2024-07-11] MEDS: diphenhydrAMINE 50 MG/ML VIAL 25 MG IV (19:16)
[2024-07-11] MEDS: METOCLOPRAMIDE 10 MG/2 ML INJ IV (19:19)
[2024-07-11 19:33] VITALS: O2SAT 91
--- NOTE | 2024-07-11 19:55 | PC.NURSE ---
Pt reports having pain to upper abdomen. Dr Orantes notified. New orders received.
[2024-07-11 20:34] VITALS: BP 108/75; PULSE 85; RESP 19; TEMP 36.6; O2SAT 98
== END 2024-07-11 20:39 | disposition home or self-care (01) ==
PROVIDERS: Emergency Provider Emergency Medicine
DX: R51.9 Headache, unspecified (principal)
CPT/HCPCS: 96374; 96375; 99283; 99284; J1200; J1885; J2765